=== PATIENT | female | born 1975 | race Caucasian/White ===

== ENCOUNTER 2020-01-23 07:45 | Outpatient (CLI) | payer OTHER ==
[2020-01-23 17:23] LABS: #Eosinphils 0.1 thou/uL (0.0-0.7); #Lymphocytes 2.3 thou/uL (1.20-3.40); #Monocytes 0.5 thou/uL (0.11-0.59); #Neutrophils 4.3 thou/uL (1.40-6.50); %Basophils 0.6 % (0.0-1.0); %Eosinophils 1.5 % (0.0-10.0); %Lymphocytes 31.7 % (21.0-51.0); %Monocytes 6.9 % (0.0-10.0); %Neutrophils 59.3 % (42.0-75.0); Hemoglobin 12.9 g/dL (12.0-16.0); Mean Corpuscular HGB CONC 33.4 g/dL (32.0-36.0); Mean Corpuscular Hemoglobin 31.3 pg (27.0-31.0); Mean Corpuscular Volume 93.6 fL (78.0-98.0); Platelet Count 285 thou/uL (130-400); RBC Distribution Width 11.2 % (11.5-14.5); Red Blood Cell (RBC) Count 4.13 mill/uL (4.20-5.40); White Blood Cell (WBC) Count 7.3 thou/uL (4.8-10.8)
[2020-01-23 17:37] LABS: BHCG - Serum Negative (NEGATIVE); Pregs Control Background? CLEAR/WHITE (CLR/WHITE); Pregs Control Bar Appear? YES (CONTROL BAR)
[2020-01-24 18:38] LABS: SARS-CoV-2 MS2 Positive; SARS-CoV-2 N Gene Negative; SARS-CoV-2 S Gene Negative; SARS-CoV-2 orf1ab Negative
== END 2020-01-23 07:46 | disposition home or self-care (01) ==
LOC: LABBT 07:45
PROVIDERS: ATTEND Orthopaedic Surgery
DX: Z01.812 Encounter for preprocedural laboratory examination (principal); Z11.59 Encounter for screening for other viral diseases; G56.22 Lesion of ulnar nerve, left upper limb
CPT/HCPCS: 84703; 85025; 87635; U0003

== ENCOUNTER 2020-01-26 09:29 | Day surgery (SDC) | payer OTHER ==
[2020-01-26] MEDS ORDERED: PROPOFOL 200 MG/20 ML VIAL ONE (12:39)
[2020-01-26] MEDS ORDERED: Lidocaine 1% PF 5 ML VIAL ONE (12:39)
[2020-01-26] MEDS ORDERED: EPHEDRINE 25 MG/5 ML SYRINGE ONE (12:39)
[2020-01-26] MEDS ORDERED: Ondansetron PF 4 MG/2 ML Vial ONE (12:39)
[2020-01-26] MEDS ORDERED: Ketorolac Tromethamine 30 MG/ML VIAL ONE (12:39)
[2020-01-26] MEDS ORDERED: Dexamethasone 20 MG/5 ML VIAL ONE (12:39)
[2020-01-26] MEDS ORDERED: Fentanyl 100 MCG/2 ML VIAL ONE ×2 (12:46→14:36)
[2020-01-26] MEDS ORDERED: Bupivacaine/Epinephrine 0.25% 30 ML VIAL ONE (13:48)
[2020-01-26] MEDS ORDERED: Morphine 2 MG/ML SYRINGE ONE (14:53)
[2020-01-26] MEDS ORDERED: HYDROcodone/Acetaminophen 5/325 mg Tablet ONE (16:33)
--- NOTE | 2020-01-27 08:42 | OP ---
DATE OF PROCEDURE: 01/26/2020 PREOPERATIVE DIAGNOSIS: Right cubital tunnel syndrome. POSTOPERATIVE DIAGNOSES: Right cubital tunnel syndrome with subluxation/ snapping of the ulnar nerve. PROCEDURE PERFORMED: Ulnar nerve transposition. SANDSTONE SPLITTER: None. ANESTHESIA: Dr. Yadav with a LMA with 10 mL of 0.25% Marcaine with epinephrine. ESTIMATED BLOOD LOSS: Less than 10 mL. TOURNIQUET TIME: 30 minutes at 250 mmHg. ANTIBIOTICS: Ancef 2 g. COMPLICATIONS: None. INDICATIONS FOR PROCEDURE: Ms. Oneill is a 44-year-old female with 2 years of left elbow symptoms. The patient had pain at all times. The patient had numbness and tingling in small finger. She had what appeared to be a snapping ulnar nerve, which I could not completely see until intraoperatively. I discussed risks and benefits of ulnar nerve transposition and decompression to include pain, scar, bleeding, infection, damage to vital structures, decreased range of motion and strength, continued pain despite surgery intervention, nerve injury, loss of life or limb. The patient understood the risks and benefits and elected to proceed. DESCRIPTION OF PROCEDURE: Time-out was performed designating the patient's left upper extremity as the operative site based on site, consents, and marking. After time-out, the patient's left upper extremity was prepped and draped in a sterile fashion. Posterior incision was made in between the medial epicondyle and the olecranon down through skin. I used scissors to dissect down and came to Chavis's fascia, and dissected and transposed the nerve medially over the medial epicondyle. I came down on the fascia near the ulna, split the fascia and muscle plane and helped to bring it over the medial epicondyle, let down a little bit of the common flexors just to allow the nerve a place to rest just to take a few of the fibers of the tendon. I moved proximally to ensure the intermuscular septum was released. I completely released the nerve to ensure it was out of the groove. I placed a pocket subcutaneously. I took the remnant components of the Chavis's fascia and sewed those tothe under surface of the deep layer of the skin to create a pocket subcutaneously for this to be maintained in. I put it through a range of motion and stayed anteriorly. There was an area where the nerve was slightly bulbous, which was likely the area where the nerve had been snapping for a period of time. I released the intermuscular septum to ensure that the nerve would sit anterior and had no tethers on either side. I then washed. I placed 0 subcutaneously to create my pocket for the nerve in the subcutaneous tissues. I placed 2-0 and 3-0 nylon for skin. I injected 10 mL of 0.25% Marcaine with epinephrine. Tourniquet was let down after 30 minutes. The patient was placed in posterior splint. The patient will remove the splint in 1 week. She will follow up me in about 2 weeks. She will begin range of motion, may use her sling as tolerated. Job ID: [id number] [facility]
== END 2020-01-26 16:54 | disposition home or self-care (01) ==
LOC: SDC 09:29
PROVIDERS: ATTEND Orthopaedic Surgery
PROC: 01N40ZZ Release Ulnar Nerve, Open Approach (ICD-10-PCS; principal; 2020-01-26)
DX: G56.22 Lesion of ulnar nerve, left upper limb (principal); M77.11 Lateral epicondylitis, right elbow
CPT/HCPCS: J0690; J1100; J1885; J2001; J2270; J2405; J2704; J3010